=== PATIENT | female | born 1990 | race Caucasian/White ===

== ENCOUNTER 2018-04-12 11:37 | Emergency (ER) | payer BC ==
[~2018-04-12] VITALS: Ht 177.8 cm; Wt 103.9 kg
--- NOTE | 2018-04-12 12:12 | PHYS DOC ---
Past History Past Medical History: Anxiety, Diabetes Past Surgical History: No Surgical History Alcohol Use: None Drug Use: None Adult General Chief Complaint Chief Complaint: MECHANICAL FALL HPI HPI 27-year-old female who sustained a mechanical fall today about an hour prior to arrival. She stepped on uneven ground and fell on her left hip. She was able to walk on her hip since the event but does have pain in the left hip region. She also complains of pain in the buttocks region and the left musculature of the low back. She denies any pain in the midline of the back. She also has a mild abrasion on her left ankle and complains of superficial pain but denies any bony tenderness on examination. The pain is sharp shooting in the hip nonradiating moderate and intermittent. She denies any symptoms before the fall. She is otherwise healthy and denies being . Review of systems is negative for chest pain shortness of breath syncope. All other review of systems is negative unless otherwise noted in history of present illness. ED course: 27-year-old female presenting to the emergency department with left hip pain after a mechanical fall. On examination she has nontender ankle with normal range of motion. The low back is nontender in the midline with no step- offs. She has a small abrasion over the left flank region that is tender to palpation without any hematomas. Nontender posterior rib cage without crepitus to palpation. No ecchymosis. Patient has mild pain with passive range of motion of the left hip. Neurovascularly intact distally with 2 second cap refill and palpable pulse. Normal motor and sensory function of the left foot. Otherwise the remainder the exam is unremarkable. No evidence of head trauma. Abdomen is soft and nontender. Patient was given oral pain medication here in the emergency department. X-rays obtained and neg. The patient has been examined and was not found to have an emergency medical condition. The patient was then discharged home in stable condition to follow up with their primary care physician over the next 2-3 days. They were to return if their symptoms worsened or if they were concerned for any reason. They were also instructed to return to the emergency department if they were unable to get the recommended and appropriate follow-up. [id number] discharge instructions and return precautions were given. Patient's questions were answered to their satisfaction. Patient is comfortable with plan. Review of Systems Review of Systems SEE ABOVE. Allergies Allergies Allergies Coded Allergies Type Severity Reaction Last Updated Verified Penicillins Allergy Intermediate 04/12/18 Yes Physical Exam Physical Exam SEE ABOVE Constitutional: Well developed, well nourished, no acute distress, non-toxic appearance. [] HENT: Normocephalic, atraumatic, bilateral external ears normal, oropharynx moist, no oral exudates, nose normal. [] Eyes: PERRLA, EOMI, conjunctiva normal, no discharge. [] Neck: Normal range of motion, no tenderness, supple, no stridor. [] Cardiovascular:Heart rate regular rhythm, no murmur [] Lungs & Thorax: Bilateral breath sounds clear to auscultation [] Abdomen: Bowel sounds normal, soft, no tenderness, no masses, no pulsatile masses. [] Skin: Warm, dry, no erythema, no rash. [] Back: See above Extremities: Mild abrasion to the lateral ankle nontender. No tenderness of the foot. Normal range of motion of the ankle. Mild tenderness in the left hip as above. The remainder the joints are unremarkable. Nontender with normal range of motion. Neurovascularly intact. Neurologic: Alert and oriented X 3, normal motor function, normal sensory function, no focal deficits noted. [] Psychologic: Affect normal, judgement normal, mood normal. [] Current Patient Data Vital Signs Vital Signs Date Time Temp Pulse Resp B/P (MAP) Pulse Ox O2 Delivery O2 Flow Rate FiO2 04/12/18 11:57 98.1 92 16 97 Room Air EKG EKG [] Radiology/Procedures Radiology/Procedures [] Course & Med Decision Making Course & Med Decision Making Pertinent Labs and Imaging studies reviewed. (See chart for details) [] Dragon Disclaimer Dragon Disclaimer This electronic medical record was generated, in whole or in part, using a voice recognition dictation system. Departure Departure: Impression: Primary Impression: Left hip pain Additional Impressions: Left flank pain Abrasion of ankle, left Disposition: 01 HOME, SELF-CARE Condition: STABLE Patient Instructions: Abrasion, [id number] Additional Instructions: Thank you for allowing us to participate in your care today. Return to the emergency department you have any new or worsening symptoms, or if you are concerned for any reason. Return to emergency department if you have any new or concerning symptoms including but not limited to fever, chills, nausea, vomiting, intractable pain, any new rashes, chest pain, shortness of air , uncontrolled bleeding, difficulty breathing, and/or vision loss. Follow up with your primary care physician within 3 days. Call your Primary Doctor tomorrow and inform them of your visit today. If you do not have a primary care provider we are happy to provide you with a list of our primary care providers contact information. This condition should be evaluated by your primary care physician and any recommended consulting services for continued management within 2-3 days after discharge. If at any time, you are having difficulty getting into your primary care doctor or a specialist, return to the emergency department. Problem Qualifiers RONNY ZAVALA MD Apr 12, 2018 12:12
[2018-04-12] MEDS ORDERED: MORPHINE IR 15 MG TABLET PO ONE ×2 (12:15→13:45)
[2018-04-12 12:29] LABS: U PREG PATIENT NEGATIVE (NEG)
--- NOTE | 2018-04-12 13:46 | RAD ---
INDICATION: Pain after a fall a few days ago. TECHNIQUE: One view of the left hip and an AP view of the pelvis are submitted for review. No comparison is available. FINDINGS: There is no fracture or dislocation. There is no osseous lesion. Bony pelvis appears intact. IMPRESSION: Negative for fracture. Electronically signed by: Asher Obrien MD (04/12/2018 1:42 PM) [facility]
[2018-04-12 14:15] VITALS: BP 114/71
== END 2018-04-12 14:14 | disposition home or self-care (01) ==
LOC: ER 11:37
DX: S90.512A Abrasion, left ankle, initial encounter (principal); M25.552 Pain in left hip; R10.9 Unspecified abdominal pain; M54.5 Low back pain; F41.9 Anxiety disorder, unspecified; E11.9 Type 2 diabetes mellitus without complications; Z88.0 Allergy status to penicillin; W19.XXXA Unspecified fall, initial encounter; Y93.89 Activity, other specified; Y99.8 Other external cause status; Y92.89 Other specified places as the place of occurrence of the external cause
CPT/HCPCS: 73501; 81025; 99285